=== PATIENT | female | born 1960 | race Caucasian/White ===

== ENCOUNTER 2016-11-08 06:45 | Day surgery (SDC) | payer MEDICAID ==
[~2016-11-08] VITALS: Ht 165.1 cm; Wt 79.4 kg
[2016-11-08] MEDS ORDERED: METO25TE47 PO (07:49)
[2016-11-08] MEDS ORDERED: CETI1SYR27 PO (07:49)
[2016-11-08] MEDS ORDERED: METF500T4 PO (07:49)
[2016-11-08] MEDS ORDERED: LORA5SYR25 PO (07:49)
[2016-11-08] MEDS ORDERED: fentaNYL 0.05 MG/ML VIAL ONE (08:08)
[2016-11-08] MEDS ORDERED: MIDAZOLAM 2 MG/2 ML VIAL ONE (08:09)
[2016-11-08] MEDS ORDERED: LIDOCAINE 2% 100 MG/5 ML UJET TP ONE (08:09)
== END 2016-11-08 09:47 | disposition home or self-care (01) ==
LOC: MDS 06:45 → MMU 06:45 → MDS 09:47
PROVIDERS: ATTEND Internal Medicine Gastroenterology
DX: K64.4 Residual hemorrhoidal skin tags (principal); I10 Essential (primary) hypertension; K21.9 Gastro-esophageal reflux disease without esophagitis; E04.9 Nontoxic goiter, unspecified; F17.210 Nicotine dependence, cigarettes, uncomplicated
CPT/HCPCS: 36415; 45330; 82948; 86702; 86803; 87340; J2250; J3010

== ENCOUNTER 2016-11-09 12:48 | Outpatient (CLI) | payer OTHER ==
[~2016-11-09 12:48] MED LIST: CETI1SYR27 PO; LORA5SYR25 PO; METF500T4 PO; METO25TE47 PO
== END 2016-11-09 23:59 | disposition home or self-care (01) ==
LOC: MLB 12:48
PROVIDERS: ATTEND Internal Medicine Gastroenterology
DX: Z00.00 Encounter for general adult medical examination without abnormal findings (principal); Z13.0 Encounter for screening for diseases of the blood and blood-forming organs and certain disorders involving the immune mechanism

== ENCOUNTER 2021-09-12 12:48 | Emergency (ER) | payer OTHER ==
[~2021-09-12] VITALS: Ht 165.1 cm; Wt 80.7 kg
[~2021-09-12 12:48] MED LIST changes: +METF-1243 PO; -METF500T4 PO; -METO25TE47 PO; +METO25TE71 PO
[2021-09-12 12:55] VITALS: BP 123/64
--- NOTE | 2021-09-12 13:11 | NUR ---
PT AMBULATED TO ER BED 4 WITH A STEADY GAIT.
--- NOTE | 2021-09-12 13:14 | NUR ---
CLEARANCE COORDINATOR AT PT BEDSIDE.
--- NOTE | 2021-09-12 13:24 | NUR ---
ENVIRONMENTAL SERVICES DIRECTOR ATPT BEDSIDE.
[2021-09-12 13:57] LABS: BASOPHILS # (AUTO) 0.1 K/uL (0.00-0.22); BASOPHILS % (AUTO) 0.5 % (0.0-2.0); EOSINOPHILS # (AUTO) 0.3 K/uL (0-0.4); EOSINOPHILS % (AUTO) 2.3 % (0.0-4.0); HEMATOCRIT 42.7 % (36-48); HEMOGLOBIN 14.6 g/dL (12.0-16.0); LYMPHOCYTES # (AUTO) 2.1 K/uL (2.5-16.5); MEAN CORPUSCULAR HEMOGLOBIN 32 pg (27-31); MEAN CORPUSCULAR HGB CONC 34 g/dL (33-37); MEAN CORPUSCULAR VOLUME 94.2 fL (80-94); MONOCYTES # (AUTO) 0.6 K/uL (0.8-1.0); MONOCYTES % (AUTO) 5.9 % (1.7-9.3); NEUTROPHILS # (AUTO) 7.9 K/uL (1.8-7.7); NEUTROPHILS % (AUTO) 72.3 % (42.2-75.2); PLATELET COUNT (AUTO) 282 K/uL (140-450); RED BLOOD CELL COUNT(AUTO) 4.54 MIL/uL (4.20-5.40); RED CELL DISTRIBUTION WIDTH 14.4 % (11.6-13.7)
--- NOTE | 2021-09-12 14:23 | NUR ---
Pt laying quietly in [facility]. [facility]
[2021-09-12] MEDS ORDERED: IBUPROFEN 800 MG TAB PO ONE (14:50)
[2021-09-12] MEDS ORDERED: LIDOCAINE 5% 1 EA PATCH TP SCH (14:50)
[2021-09-12] MEDS ORDERED: ACETAMINOPHEN EXTRA STRENGTH 500 MG TAB PO ONE (14:50)
[2021-09-12 15:04] LABS: ALBUMIN 3.8 g/dL (3.4-5.0); ANION GAP 14.9 (8-16); CARBON DIOXIDE 27.8 mmol/L (21-32); POTASSIUM 3.7 mmol/L (3.5-5.1)
[2021-09-12] MEDS ORDERED: IBUPROFEN 800 MG TAB ONE (16:04)
[2021-09-12] MEDS ORDERED: ACET-2619 PO (16:05)
[2021-09-12] MEDS ORDERED: NAPR-54 PO (16:05)
[2021-09-12] MEDS ORDERED: LID5T TP (16:05)
--- NOTE | 2021-09-12 16:38 | NUR ---
Patient discharged with v/s stable. Written and verbal after care instructions given and explained. Patient alert, oriented and verbalized understanding of instructions. Ambulatory with steady gait. All questions addressed prior to discharge. ID band removed. Patient advised to follow up with PMD. Rx of acetaminophen, lidocain, and naproxen given. Patient educated on indication of medication including possible reaction and side effects. Opportunity to ask questions provided and answered.
[2021-09-12 16:44] VITALS: BP 109/65
== END 2021-09-12 16:38 | disposition home or self-care (01) ==
LOC: MED 12:48
DX: S16.1XXA Strain of muscle, fascia and tendon at neck level, initial encounter (principal); R07.9 Chest pain, unspecified; E11.9 Type 2 diabetes mellitus without complications; X58.XXXA Exposure to other specified factors, initial encounter; Y93.89 Activity, other specified; Y92.89 Other specified places as the place of occurrence of the external cause; Y99.8 Other external cause status; Z20.822 Contact with and (suspected) exposure to COVID-19
CPT/HCPCS: 36415; 71045; 80053; 83880; 84484; 85025; 87426; 93005; 99285; Q0092

== ENCOUNTER 2023-08-10 11:28 | Inpatient (IN) | payer OTHER ==
[~2023-08-10] VITALS: Ht 162.6 cm; Wt 73.5 kg
[~2023-08-10 11:28] MED LIST changes: +ACET-2619 PO; +LID5T TP; +NAPR-54 PO
[2023-08-10 11:40] VITALS: BP 121/65; PULSE 64; RESP 18; TEMP 98; O2SAT 97
[2023-08-10] MEDS: ASPIRIN 81 MG TAB.CHEW PO ONE (12:14)
[2023-08-10 13:02] LABS: BASOPHILS % (AUTO) 0.5 % (0.0-2.0); EOSINOPHILS # (AUTO) 0.3 K/uL (0-0.4); EOSINOPHILS % (AUTO) 3.2 % (0.0-4.0); HEMATOCRIT 41.3 % (36-48); HEMOGLOBIN 14.4 g/dL (12.0-16.0); LYMPHOCYTES # (AUTO) 2.4 K/uL (2.5-16.5); LYMPHOCYTES % (AUTO) 23.9 % (20.5-51.1); MEAN CORPUSCULAR HEMOGLOBIN 32 pg (27-31); MEAN CORPUSCULAR HGB CONC 35 g/dL (33-37); MEAN CORPUSCULAR VOLUME 93.2 fL (80-94); MONOCYTES # (AUTO) 0.7 K/uL (0.8-1.0); MONOCYTES % (AUTO) 6.9 % (1.7-9.3); NEUTROPHILS # (AUTO) 6.7 K/uL (1.8-7.7); NEUTROPHILS % (AUTO) 65.5 % (42.2-75.2); PLATELET COUNT (AUTO) 265 K/uL (140-450); RED BLOOD CELL COUNT(AUTO) 4.44 MIL/uL (4.20-5.40); RED CELL DISTRIBUTION WIDTH 13.8 % (11.6-13.7); WHITE BLOOD COUNT (AUTO) 10.1 K/uL (4.8-10.8)
[2023-08-10 13:06] LABS: APPEARANCE,URINE CLEAR (CLEAR); BILIRUBIN,URINE NEGATIVE (NEGATIVE); BLOOD, URINE NEGATIVE (NEGATIVE); COLOR,URINE YELLOW (YELLOW); LEUKOCYTE ESTERASE ,URINE NEGATIVE (NEGATIVE); NITRITE, URINE NEGATIVE (NEGATIVE); PROTEIN,URINE NEGATIVE (NEGATIVE); UGLUCOSE 2+ (NEGATIVE); UROBILINOGEN,URINE 0.2 EU/dL (0.2 - 1)
[2023-08-10 13:17] LABS: CARBON DIOXIDE 32.4 mmol/L (21-32); CREATININE 0.7 mg/dL (0.6-1.3); POTASSIUM 3.4 mmol/L (3.5-5.1)
[2023-08-10 13:21] LABS: ALANINE AMINOTRANSFERASE 20 U/L (12-78); ALBUMIN 3.5 g/dL (3.4-5.0); ALKALINE PHOSPHATASE 101 U/L (50-136); ASPARTATE AMINOTRANSFERASE 14 U/L (15-37); BILIRUBIN,DIRECT 0.1 mg/dL (0.0-0.3); INR 1.01 (0.8-1.2); PARTIAL THROMBOPLASTIN TIME 28.8 secs (22-35.6); PROTHROMBIN TIME 10.6 secs (10.8-13.4); TOTAL BILIRUBIN 0.3 mg/dL (0.0-1.0); TOTAL PROTEIN, SERUM 7.8 g/dL (6.4-8.2)
[2023-08-10 13:38] LABS: D-DIMER < 100 ng/ml (0-400)
[2023-08-10] MEDS ORDERED: ACETAMINOPHEN 325 MG TAB PO PRN (13:50)
[2023-08-10] MEDS ORDERED: MORPHINE SULFATE 4 MG/ML SYR IVP PRN (13:50)
[2023-08-10] MEDS ORDERED: MAG SULF 2000 MG/WATER PREMIX 50 ML IV PRN (13:50)
[2023-08-10] MEDS ORDERED: ZOLPIDEM 5 MG TAB PO PRN (13:50)
[2023-08-10] MEDS ORDERED: LORazepam 1 MG TAB PO PRN (13:50)
[2023-08-10] MEDS ORDERED: ONDANSETRON 4 MG/2 ML VIAL IVP PRN (13:50)
[2023-08-10] MEDS ORDERED: KCL 20 MEQ IN 100 mL PREMIX 200 ML IV PRN (13:50)
[2023-08-10] MEDS ORDERED: HYDROcodone/APAP 5/325 MG 1 TAB TAB PO PRN (13:50)
[2023-08-10] MEDS: ATORVASTATIN 20 MG TAB PO SCH (13:57)
[2023-08-10] MEDS: ONDANSETRON 4 MG/2 ML VIAL IVP ONE (14:01)
[2023-08-10] MEDS: MORPHINE SULFATE 4 MG/ML SYR IVP ONE (14:07)
[2023-08-10] MEDS ORDERED: LOSA-272 PO (15:39)
[2023-08-10 16:05] VITALS: BP 148/61; PULSE 57; PULSE 66; RESP 18; TEMP 96.5; O2SAT 96
[2023-08-10 19:55] VITALS: PULSE 52
[2023-08-10 20:00] VITALS: BP 128/55; PULSE 56; PULSE 59; PULSE 62; RESP 18; TEMP 98.3; O2SAT 97
[2023-08-10] MEDS: POTASSIUM CHLORIDE 10 MEQ TABER PO PRN (21:32)
[2023-08-10 23:53] VITALS: PULSE 56; RESP 18; O2SAT 98
[2023-08-10 23:55] VITALS: PULSE 52
[2023-08-11] VITALS: BP 118/58; PULSE 56; PULSE 59; RESP 18; TEMP 98.3; O2SAT 97
[2023-08-11 04:00] VITALS: BP 112/56; PULSE 52; RESP 18; TEMP 98; O2SAT 96
[2023-08-11 06:53] LABS: BASOPHILS % (AUTO) 0.3 % (0.0-2.0); EOSINOPHILS # (AUTO) 0.4 K/uL (0-0.4); EOSINOPHILS % (AUTO) 3.6 % (0.0-4.0); HEMATOCRIT 42.2 % (36-48); HEMOGLOBIN 14.5 g/dL (12.0-16.0); LYMPHOCYTES # (AUTO) 3.2 K/uL (2.5-16.5); LYMPHOCYTES % (AUTO) 29.7 % (20.5-51.1); MEAN CORPUSCULAR HEMOGLOBIN 32 pg (27-31); MEAN CORPUSCULAR HGB CONC 34 g/dL (33-37); MEAN CORPUSCULAR VOLUME 92.7 fL (80-94); MONOCYTES # (AUTO) 0.9 K/uL (0.8-1.0); MONOCYTES % (AUTO) 8.5 % (1.7-9.3); NEUTROPHILS # (AUTO) 6.3 K/uL (1.8-7.7); NEUTROPHILS % (AUTO) 57.9 % (42.2-75.2); PLATELET COUNT (AUTO) 271 K/uL (140-450); RED BLOOD CELL COUNT(AUTO) 4.55 MIL/uL (4.20-5.40); RED CELL DISTRIBUTION WIDTH 14.2 % (11.6-13.7); WHITE BLOOD COUNT (AUTO) 10.8 K/uL (4.8-10.8)
[2023-08-11 07:03] LABS: ANION GAP 7.3 (8-16); CALCIUM 9.2 mg/dL (8.5-10.1); CARBON DIOXIDE 32.3 mmol/L (21-32); CREATININE 0.7 mg/dL (0.6-1.3); POTASSIUM 4.6 mmol/L (3.5-5.1)
[2023-08-11 07:58] VITALS: PULSE 56; PULSE 67; RESP 18; O2SAT 100; O2SAT 98
[2023-08-11 08:00] VITALS: BP 117/64; PULSE 55; PULSE 67; RESP 18; TEMP 96.6; O2SAT 100
[2023-08-11] MEDS: MEDS-TO-BEDS MC SCH (09:00)
[2023-08-11] MEDS: ASPIRIN 81 MG TAB.CHEW PO SCH (09:29)
[2023-08-11] MEDS: ENOXAPARIN 40 MG/0.4 ML SYR SUBQ SCH (09:30)
[2023-08-11 12:00] VITALS: BP 146/65; PULSE 55; PULSE 60; RESP 18; TEMP 97; O2SAT 98
[2023-08-11 13:52] VITALS: BP 143/77; PULSE 56; RESP 18; TEMP 97.8
== END 2023-08-11 15:55 | disposition home or self-care (01) | DRG 198 ==
LOC: MED 11:28 → OBSVTOIN 13:52 → MTU 13:52 → UNDOADMOB 13:52 → MTU 15:30
PROVIDERS: ADMIT Internal Medicine; ATTEND Internal Medicine
DX: I24.89 Other forms of acute ischemic heart disease (principal); E06.3 Autoimmune thyroiditis; E11.9 Type 2 diabetes mellitus without complications; E78.5 Hyperlipidemia, unspecified; I10 Essential (primary) hypertension; I70.0 Atherosclerosis of aorta; Z79.84 Long term (current) use of oral hypoglycemic drugs; Z79.899 Other long term (current) drug therapy
CPT/HCPCS: 36415; 70450; 71045; 80048; 80076; 81003; 83880; 84484; 85025; 85379; 85610; 85730; 87081; 96374; 96375; 99285; J1650; J2270; J2405; Q0092